=== PATIENT | female | born 2000 | race Caucasian/White ===

== ENCOUNTER 2022-09-04 09:40 | Emergency (ER) | payer OTHER ==
[~2022-09-04] VITALS: Ht 160 cm; Wt 57.0 kg
[2022-09-04 12:00] VITALS: BP 118/76
== END 2022-09-04 16:43 | disposition left against medical advice (07) ==
LOC: ER 09:40
DX: Z53.21 Procedure and treatment not carried out due to patient leaving prior to being seen by health care provider (principal)